=== PATIENT | male | born 1995 ===

== ENCOUNTER 2022-08-18 01:59 | Emergency (ER) | payer OTHER, SELFPAY ==
[2022-08-18 01:57] VITALS: BP 130/99; PULSE 142; RESP 16; TEMP 207.3; TEMP 97.4; O2SAT 96
--- NOTE | 2022-08-18 02:32 | ED.GENADUL_ITS ---
Discharge Plan Disposition Patient Disposition: Home Discharge Details Chief Complaint: Laceration Clinical Impression: Laceration of scalp ED Provider: Freddy Gonzalez Home Meds and New Rx's Prescriptions: No Action No Known Home Meds Discharge Instructions Instructions: Laceration (ED) Additional Instructions: Please return in 7 to 10 days to have your sutures removed. Please return sooner if you have any signs of worsening bleeding or infection or other abnormal symptoms Medical Decision Making 27-year-old male was drinking this evening fell backwards hit his head in the bathroom, sustained 4 cm stellate laceration occipital scalp large underlying hematoma, intermittent venous bleeding, controlled with direct pressure, 2 overlying simple interrupted sutures with 3-0 Ethilon applied, patient still intoxicated becoming verbally and at times borderline physically combative with staff applied a pressure dressing over sutures to give patient time to calm down. Suggest the patient undergo CT head however patient refusing further treatment. Will allow patient to sober will reassess wound and likely perform further simple interrupted sutures over remaining wound. Patient hemodynamically stable. Not saturating through gauze at this time. 03:34 patient more cooperative. Clinically more sober. Amenable to us taking another look at his wound. Was able to place a third simple interrupted 3-0 Ethilon stitch. Good hemostasis. Remaining area of wound is macerated skin with underlying hematoma. Pressure dressing applied. Family coming to pick patient up. Patient still refusing CT imaging. Alert oriented ambulatory no nausea or vomiting. Home care instructions and return precautions given. HPI General Date/Time Provider Initiated Documentation: 08/18/22 02:31 . HPI Narrative: 27-year-old male intoxicated slipped and fell in the bathroom hitting back of head sustaining large laceration to scalp Related Data Home Medications Medication Instructions Recorded Confirmed Unknown [No Known Home Meds] 08/18/22 08/18/22 Allergies Allergy/AdvReac Type Severity Reaction Status Date / Time oxycodone Allergy Unverified 08/18/22 02:04 General Stated Complaint: Laceration ABHILASH: 3 Review of Systems Narrative: Review of Systems Constitutional: negative Eyes: negative ENT: negative Cardiovascular: negative Respiratory: negative Gastrointestinal: negative : negative Musculoskeletal: negative Skin: Scalp laceration Neurologic: negative Psych: negative PFSH All Active Problems (Updated 08/18/22 @ 03:40 by Freddy Gonzalez MD) Laceration of scalp (Acute) Social History Smoking/Tobacco Use Status: Current every day Tobacco Type: cigarettes Smoking risk assessment performed?: Yes Drug use: Occasionally Substance use type: marijuana Exam Narrative Exam Narrative: Physical Examination General: alert, awake, HEENT: normocephalic, 4 cm stellate laceration with underlying hematoma to occipital scalp; PERRL, EOM intact, conjunctiva normal; no nasal discharge; moist mucous membranes, oral and pharyngeal mucosa normal, tolerating secretions Neck: supple, trachea midline; full ROM Chest: normal to inspection Respiratory: normal respiratory effort, speaking in full sentences, clear to auscultation, no wheezing, rales or rhonchi Cardiac: regular rate, regular rhythm, S1S2 intact, no murmurs rubs or gallops GI: abdomen soft, non-tender, non-distended; no palpable mass or hepatosplenomegaly Skin: no lesions, rashes or trauma appreciated Neuro: AAOx3, moving all extremities, following commands Psych: Anxious and aggressive Course Vital Signs Vital signs: Vital Signs Temperature 97.4 C 08/18/22 01:57 Pulse 142 08/18/22 01:57 Respiratory Rate 16 08/18/22 01:57 Blood Pressure 130/99 08/18/22 01:57 Pulse Oximetry 96 08/18/22 01:57 Temperature 97.4 C 08/18/22 01:57 Pulse 142 08/18/22 01:57 Respiratory Rate 16 08/18/22 01:57 Respiratory Effort Normal 08/18/22 01:57 Blood Pressure 130/99 08/18/22 01:57 Blood Pressure Position Supine 08/18/22 01:57 Pulse Oximetry 96 08/18/22 01:57 Pain Level 0 08/18/22 01:57 Procedures Laceration Laceration 1: Site: scalp Size (cm): 4 Description: stellate Depth: involves muscle layer Local Anesthetic: Lidocaine 1% Amount of anesthesia used (mL): 3 Skin layer closed with: other (ethilon) Size (cm): 3-0 Number of sutures: 3 Technique: simple, interrupted
--- NOTE | 2022-08-19 11:02 | NUR.NOTE ---
Nursing Note: Girlfriend called to question if patient had any limitations regarding his stitches at work. [employer] informed her to make sure PT keeps them covered while at work to reduce the risk of infection.
--- NOTE | 2022-08-20 15:55 | NUR.NOTE ---
Addendum entered by Kendy Keene 08/22/22 10:13: 2nd work note mailed to pt. Addendum entered by Kendy Keene 08/22/22 10:11: Patient called today stating the work note needed to say that there were no restrictions. Dr. Barraza did another work note and checked off yes to return to work at full capacity. Faxed to the fax number below. Addendum entered by Kendy Keene 08/20/22 15:58: Called pt to confirm receipt of the fax. He had not checked, at his request will mail the copy that I have to him. Original Note: Nursing Note: At patient request faxed the work note to the patient's office. . .
--- NOTE | 2022-08-28 13:16 | ED.FU.B_ITS ---
Date of service: 08/28/22 Time of Service: 13:16 Follow Up Plan: Was contacted by Dr. Eliot Beebe at the [facility] urgent care. Patient was there for suture removal. Practitioner is stated that the wound was gaping, sutures are still in place but loose. No additional information was given. Question was asked as to whether or not it should be closed. I did state that I unfortunately was not there to see and evaluate the patient myself, however my understanding of current literature is that the wounds that have been open for greater than 24 to 48 hours should not be surgically reconnected at that point. My thoughts would be healing through secondary intention with recommendation for close follow-up with plastics on an outpatient basis. However the patient was clearly being seen by that practitioner and I did not have any other additional details. Practitioner had no other additional questions at this time. I did review the note with him from when the sutures were initially placed, and it does appear that ese were recommended but the patient refused at that time and there was a large hematoma at that time as well that has resolved at this point.
== END 2022-08-18 04:26 | disposition home or self-care (01) ==
LOC: ER 04:26
PROVIDERS: Emergency Provider Emergency Medicine
DX: S01.01XA Laceration without foreign body of scalp, initial encounter (principal); W01.0XXA Fall on same level from slipping, tripping and stumbling without subsequent striking against object, initial encounter
CPT/HCPCS: 12002